=== PATIENT | male | born 1975 | race Caucasian/White ===

== ENCOUNTER → 2023-10-23 11:44 | Outpatient (CLI) | payer OTHER, MEDICAID, SELFPAY ==
--- NOTE | 2023-10-23 11:47 | DI.RAD.S_ITS ---
PROCEDURE: XR KUB INDICATIONS: kidney stones TECHNIQUE: One view of the abdomen acquired. COMPARISON: [facility], RG, CT KUB, 10/17/2023, 15:21. FINDINGS: Surgical changes and devices: None. Bowel: Bowel gas pattern is normal. Soft tissues: Bilateral renal calculi are seen that are obscured by overlying bowel. Left pelvic calcification likely corresponds to the distal left ureteral calculus seen on CT from 10/17/2023. Visualized solid organ contours appear normal in size. Bones: No suspicious bony lesions. IMPRESSION: 1. Probable distal left ureteral calculus, not significantly changed compared to the CT from 10/17/2023. 2. Bilateral renal calculi. Approved by: Slick Mata M.D. on 10/23/2023 at 13:36
== END ==
PROVIDERS: Referring Provider Specialist; Visit Provider Specialist
DX: N20.0 Calculus of kidney (principal)
CPT/HCPCS: 74018

== ENCOUNTER 2023-10-23 16:03 | Day surgery (SDC) | payer OTHER, MEDICAID, SELFPAY ==
[2023-10-23] VITALS (8 sets, daily range): BP systolic 123–141; BP diastolic 84–104; PULSE 87–113; RESP 12–21; TEMP 36.3–36.6; O2SAT 92–99; BMI 24.3
--- NOTE | 2023-10-23 | DI.RAD.S_ITS ---
PROCEDURE: XR ABDOMEN 1V INDICATIONS: CYSTOSCOPY W/ LEFT URETERAL STENT TECHNIQUE: Single intra-operative image acquired by the Urology service. COMPARISON: [facility], RG, CT KUB, 10/17/2023, 15:21. [facility], CR, XR KUB, 10/23/2023, 11:49. FINDINGS: Single fluoroscopic intraprocedural image of the left abdomen is seen with a ureteral stent partially imaged with tip projecting over the region of the left kidney. IMPRESSION: Fluoroscopy was utilized for intra procedural guidance. Approved by: Slick Mata M.D. on 10/24/2023 at 11:18
[2023-10-23] MEDS: LACTATED RINGERS 1,000 ML 42 ML IV (16:52)
[2023-10-23] MEDS: ACETAMINOPHEN IV 1,000 MG/100 ML VIAL 400 MG IV (16:53)
--- NOTE | 2023-10-23 17:28 | PM.PREOP ---
Pre-operative Note Interval Note History & Physical reviewed/Exam performed by Physician: Yes Changes to H&P: No
[2023-10-23] MEDS: CEFAZOLIN 2 GM/100 ML PREMIX 100 ML IV (18:55)
--- NOTE | 2023-10-23 19:49 | PM.OP.1 ---
Operative Date/Time/Diagnoses Date of procedure: 10/23/23 Time of procedure: 19:49 Pre-op diagnosis: 1. 6 x 10 mm obstructing left distal ureteral calculus. 2. Bilateral nephrolithiasis. Post-op diagnosis: same Procedure & Clinicians Procedure: 1. Cystoscopy/left ureteroscopic laser lithotripsy. 2. Cystoscopy/placement left ureteral stent (7 [place] by 22-32 cm multi-length). Same procedure as scheduled: Yes Indications: 1. Obstructing 6 x 10 mm left distal ureteral calculus. 2. Bilateral nephrolithiasis. Surgeon: Jayy Redding Click Yes if Unassisted: Yes Anesthesia Type: General Operative Notes Findings: 1. Urethra-normal caliber without annular stricture or lesion. 2. External sphincter-coapted with normal overlying urothelium and vascularity. 3. Prostate-3.5 cm length with mild lateral lobe hyperplasia. 4. Bladder-trace trabeculation. Bilateral ureteral orifices were patulous. Following manipulation of the left distal ureteral calculus and successful passage of the 0.35 hybrid guidewire proximally obstructive efflux was evident. 5. Left ureter-index calculus was encountered at expected location. There was severe ureteral mucosal edema over on approximate the 2 cm region. There was a 2nd, 3 mm calculus lying proximally in juxtaposition to the index calculus. Both stones were effectively lasered and stone fragments of material were. Closure Type: not applicable Specimen(s): other (Stone fragments) Applied: other (7 [place] by 22-32 cm multilink stent.) Estimated Blood Loss (mL): 1 Procedure in detail: The patient was positioned supine was administered general anesthesia. He was then repositioned in semi lithotomy in the lower abdomen, genitalia, and groin were then prepped and draped in sterile fashion. The 22 [place] panendoscope was then passed the lower urinary tract with findings as described above. A 0.35 hybrid guidewire was then advanced through the working channel of the panendoscope and then into the left ureteral orifice and then further proximally under direct fluoroscopic guidance. Next, a 15 [place] by 6 cm balloon dilating catheter was advanced over the 0.35 hybrid guidewire and positioned across the left ureterovesical junction. The balloon was then inflated 18 atmospheres and held in position for 5 minutes. The balloon was then deflated and the balloon catheter was backloaded off the hybrid guidewire. The panendoscope was also backloaded off the hybrid guidewire. The hybrid guidewire was then secured to the surgical drape. The semi-rigid ureteroscope was then prepared advanced lower urinary tract and then into the left distal ureter under direct and fluoroscopic guidance until the distal margin of the index calculus was encountered. A 200 micron laser fiber was then requested. All operating room personnel and patient were fitted with laser safety eyewear. Lithotripsy was then commenced and painstaking fragmentation and clearance of the material was undertaken using hydro mechanical and physical means. Final inspection of the ureter revealed severe ureteral mucosal edema and relative narrowing in the region the stone was impacted over a proximally 2 cm length. No evidence of ureteral perforation. Semi-rigid ureteral scope was then removed. The panendoscope was then backloaded over the guidewire and advanced lower urinary tract under direct visualization. A 7 [place] by 22-32 cm multi-length stent was then selected. A RETRIEVAL LINE WAS LEFT ATTACHED. The stent was then advanced over the hybrid guidewire under direct fluoroscopic guidance. He was positioned appropriately in the hybrid guidewire was then removed. The bladder was then drained completely and the panendoscope was removed. Small fragments found in the drain were then collected and sent to laboratory routine stone analysis. The retrieval line was trimmed at appropriate length and a small piece of 1 in clear plastic tape was then applied. The patient was then repositioned in supine, was awakened, then transferred to [facility] in stable condition. Complications: none Post-operative Condition: stable Disposition: PACU Plan for aftercare: Discharge home.
[2023-10-23] MEDS: MEPERIDINE 50 MG/ML INJ 25 MG IV ×2 (19:52→20:00)
[2023-10-23] MEDS: hydrOXYzine 50 MG/ML INJ IM (20:07)
[2023-10-23] MEDS: OXYCODONE IR 5 MG TABLET PO ×2 (20:07→20:31)
[2023-11-03 13:36] LABS: Ca oxalate dihydrate 60 % (.); Ca oxalate monohydr 40 % (.)
== END 2023-10-23 20:37 | disposition home or self-care (01) ==
PROVIDERS: Referring Provider Specialist; Visit Provider Specialist
PROC: (CPT 52356; principal; 2023-10-23 17:15)
DX: N20.1 Calculus of ureter (principal); N20.0 Calculus of kidney
CPT/HCPCS: 52356; 74018; 76000; 82365; 99215; J0136; J0690; J1100; J1885; J2175; J2405; J2704; J3010; J3410

== ENCOUNTER → 2023-11-04 11:18 | Outpatient (CLI) | payer OTHER, MEDICAID, SELFPAY ==
--- NOTE | 2023-11-04 11:19 | DI.RAD.S_ITS ---
PROCEDURE: XR KUB INDICATIONS: Post-op lithotripsy with stent placement TECHNIQUE: One view of the abdomen acquired. COMPARISON: [facility], RG, CT KUB, 10/17/2023, 15:21. [facility], CR, XR KUB, 10/23/2023, 11:49. FINDINGS: Surgical changes and devices: None. Bowel: Bowel gas pattern is normal. Soft tissues: No suspicious abdominal calcifications. Visualized solid organ contours appear normal in size. Nephroureteral stent projects over the left renal pelvis and bladder. 5 millimeter stone projects over the left kidney. Known moderate burden of bilateral nonobstructing nephrolithiasis are poorly visualized. Bones: No suspicious bony lesions. IMPRESSION: Nephroureteral stent tip projects over the left renal pelvis and bladder. No renal stones along the tract of the stent. 5 millimeter stone projects over the left kidney. Dictated by: Elan Cai M.D. on 11/04/2023 at 12:02 Approved by: Elan Cai M.D. on 11/04/2023 at 12:03
== END ==
PROVIDERS: Referring Provider Specialist; Visit Provider Specialist
DX: N20.0 Calculus of kidney (principal); Z96.0 Presence of urogenital implants
CPT/HCPCS: 74018; 99214